=== PATIENT | female | born 1960 | race African-American/Black ===

== ENCOUNTER 2020-01-13 05:42 | Day surgery (SDC) | payer OTHER, SELFPAY ==
[~2020-01-13] VITALS: Ht 162.6 cm; Wt 81.2 kg
[2020-01-13] MEDS ORDERED: fentaNYL citrate 0.05 MG/ML VIAL ONE (07:14)
[2020-01-13] MEDS ORDERED: MIDAZOLAM 5 MG/5 ML VIAL ONE (07:14)
[2020-01-13] MEDS ORDERED: LIDOCAINE 2% 100 MG/5 ML UJET TP ONE (07:14)
[2020-01-13] MEDS ORDERED: fentaNYL citrate 0.05 MG/ML VIAL IVP ONE (08:15)
[2020-01-13] MEDS ORDERED: MIDAZOLAM 2 MG/2 ML VIAL IVP ONE (08:15)
[2020-01-13] MEDS ORDERED: SIMETHICONE 40 MG/0.6 ML PO ONE (13:40)
[2020-01-13] MEDS ORDERED: ACETAMINOPHEN 650 MG/20.3 ML UDC PO SCH (13:45)
== END 2020-01-13 08:00 | disposition home or self-care (01) ==
LOC: MDS 05:42 → MFCC 05:46 → MDS 08:00
PROVIDERS: ATTEND Internal Medicine Gastroenterology
DX: Z12.11 Encounter for screening for malignant neoplasm of colon (principal); M33.90 Dermatopolymyositis, unspecified, organ involvement unspecified; Z85.00 Personal history of malignant neoplasm of unspecified digestive organ; Z79.899 Other long term (current) drug therapy; Z20.828 Contact with and (suspected) exposure to other viral communicable diseases
CPT/HCPCS: 45378; J2250; J3010; U0003

== ENCOUNTER 2020-02-10 06:06 | Day surgery (SDC) | payer OTHER, SELFPAY ==
[~2020-02-10] VITALS: Ht 162.6 cm; Wt 81.6 kg
[2020-02-10 06:59] LABS: BASOPHILS % (AUTO) 0.5 % (0.0-2.0); EOSINOPHILS # (AUTO) 0.4 K/uL (0-0.4); HEMATOCRIT 25.9 % (36-48); HEMOGLOBIN 8.2 g/dL (12.0-16.0); LYMPHOCYTES # (AUTO) 1.9 K/uL (2.5-16.5); LYMPHOCYTES % (AUTO) 26.1 % (20.5-51.1); MEAN CORPUSCULAR HEMOGLOBIN 25 pg (27-31); MEAN CORPUSCULAR HGB CONC 32 g/dL (33-37); MONOCYTES # (AUTO) 0.8 K/uL (0.8-1.0); MONOCYTES % (AUTO) 11.2 % (1.7-9.3); NEUTROPHILS # (AUTO) 4.2 K/uL (1.8-7.7); NEUTROPHILS % (AUTO) 57.2 % (42.2-75.2); PLATELET COUNT (AUTO) 417 K/uL (140-450); RED BLOOD CELL COUNT(AUTO) 3.32 MIL/uL (4.20-5.40); RED CELL DISTRIBUTION WIDTH 17.7 % (11.6-13.7); WHITE BLOOD COUNT (AUTO) 7.4 K/uL (4.8-10.8)
[2020-02-10 07:13] LABS: ALBUMIN 3.3 g/dL (3.4-5.0); ANION GAP 13.4 (8-16); CARBON DIOXIDE 24.5 mmol/L (21-32); CREATININE 0.7 mg/dL (0.6-1.3); POTASSIUM 3.9 mmol/L (3.5-5.1); TOTAL BILIRUBIN 0.5 mg/dL (0.0-1.0)
[2020-02-10] MEDS ORDERED: IPRATROPIUM 0.02% 0.5 MG/2.5 ML NEBU INH ONE (08:00)
[2020-02-10] MEDS ORDERED: ALBUTEROL 0.083% 2.5 MG/3 ML NEBU INH ONE (08:00)
[2020-02-10] MEDS ORDERED: HYDROmorphone 1 MG/ML AMP IVP PRN (08:50)
[2020-02-10] MEDS ORDERED: diphenhydrAMINE 50 MG/ML VIAL IVP PRN (08:50)
[2020-02-10] MEDS ORDERED: ONDANSETRON 4 MG/2 ML VIAL IVP PRN (08:50)
[2020-02-10] MEDS ORDERED: LACTATED RINGERS 1,000 ML IV SCH (08:50)
== END 2020-02-10 10:10 | disposition home or self-care (01) ==
LOC: MDS 06:06 → MMU 06:06 → MDS 10:10
PROVIDERS: ATTEND Internal Medicine Gastroenterology
DX: Z12.11 Encounter for screening for malignant neoplasm of colon (principal); Z85.038 Personal history of other malignant neoplasm of large intestine; D64.9 Anemia, unspecified; E66.01 Morbid (severe) obesity due to excess calories; M33.93 Dermatopolymyositis, unspecified without myopathy; Z20.828 Contact with and (suspected) exposure to other viral communicable diseases; Z90.49 Acquired absence of other specified parts of digestive tract
CPT/HCPCS: 36415; 45380; 71045; 80053; 85025; 88305; 88313; 88342; 94640; J7120; J7613; J7644; Q0092; U0003

== ENCOUNTER 2020-04-11 06:58 | Day surgery (SDC) | payer OTHER, SELFPAY ==
[~2020-04-11] VITALS: Ht 162.6 cm; Wt 75.3 kg
[~2020-04-11 06:58] MED LIST: ACET325C8 PO; BEN10 PO; CEL250 PO; LOPE1TAB14 PO; ONDA4TAB PO
[2020-04-11 08:56] LABS: BASOPHILS % (AUTO) 0.7 % (0.0-2.0); EOSINOPHILS # (AUTO) 0.3 K/uL (0-0.4); EOSINOPHILS % (AUTO) 4.2 % (0.0-4.0); HEMATOCRIT 28.2 % (36-48); HEMOGLOBIN 8.9 g/dL (12.0-16.0); LYMPHOCYTES # (AUTO) 1.6 K/uL (2.5-16.5); LYMPHOCYTES % (AUTO) 22.6 % (20.5-51.1); MEAN CORPUSCULAR HEMOGLOBIN 24 pg (27-31); MEAN CORPUSCULAR HGB CONC 31 g/dL (33-37); MEAN CORPUSCULAR VOLUME 77.5 fL (80-94); MONOCYTES # (AUTO) 0.7 K/uL (0.8-1.0); MONOCYTES % (AUTO) 10.2 % (1.7-9.3); NEUTROPHILS # (AUTO) 4.4 K/uL (1.8-7.7); NEUTROPHILS % (AUTO) 62.3 % (42.2-75.2); PLATELET COUNT (AUTO) 370 K/uL (140-450); RED BLOOD CELL COUNT(AUTO) 3.64 MIL/uL (4.20-5.40); RED CELL DISTRIBUTION WIDTH 18.9 % (11.6-13.7)
[2020-04-11 09:04] LABS: ALBUMIN 3.4 g/dL (3.4-5.0); ANION GAP 10.9 (8-16); CARBON DIOXIDE 26.9 mmol/L (21-32); CREATININE 0.7 mg/dL (0.6-1.3); POTASSIUM 3.8 mmol/L (3.5-5.1); TOTAL BILIRUBIN 0.4 mg/dL (0.0-1.0)
[2020-04-11] MEDS ORDERED: LIDOCAINE 1% 500 MG/50 ML VIAL ONE (09:24)
[2020-04-11] MEDS ORDERED: ONDANSETRON 4 MG/2 ML VIAL IVP PRN (09:25)
[2020-04-11] MEDS ORDERED: ceFAZolin 1,000 MG VIAL ONE (09:25)
[2020-04-11] MEDS ORDERED: HYDROmorphone 1 MG/ML AMP IVP PRN (09:25)
[2020-04-11] MEDS ORDERED: NACL 0.9% 1,000 ML IV SCH (09:25)
[2020-04-11] MEDS ORDERED: fentaNYL citrate 0.05 MG/ML VIAL ONE (09:26)
[2020-04-11] MEDS ORDERED: MIDAZOLAM 2 MG/2 ML VIAL ONE (09:26)
[2020-04-11] MEDS ORDERED: BUPIVACAINE-MPF 0.25% 30 ML VIAL INJ ONE (09:27)
== END 2020-04-11 12:55 | disposition home or self-care (01) ==
LOC: MDS 06:58 → MFCC 06:59 → MDS 12:55
PROVIDERS: ATTEND Surgery
DX: C18.4 Malignant neoplasm of transverse colon (principal); M33.93 Dermatopolymyositis, unspecified without myopathy; Z90.710 Acquired absence of both cervix and uterus; Z90.49 Acquired absence of other specified parts of digestive tract; Z20.828 Contact with and (suspected) exposure to other viral communicable diseases
CPT/HCPCS: 36415; 36561; 71045; 76937; 77001; 77003; 80053; 84702; 85025; C1788; J0690; J1644; J2001; J2250; J3010; J3490; J7060; U0003

== ENCOUNTER 2022-05-08 07:31 | Day surgery (SDC) | payer OTHER ==
[~2022-05-08] VITALS: Ht 162.6 cm; Wt 82.6 kg
[2022-05-08] MEDS ORDERED: MIDAZOLAM 5 MG/5 ML VIAL ONE (09:18)
[2022-05-08] MEDS ORDERED: LIDOCAINE 2% 100 MG/5 ML UJET TP ONE (09:18)
[2022-05-08] MEDS ORDERED: fentaNYL citrate 0.05 MG/ML VIAL ONE (09:18)
[2022-05-08] MEDS ORDERED: MIDAZOLAM 5 MG/5 ML VIAL IV ONE (10:05)
[2022-05-08] MEDS ORDERED: fentaNYL citrate 0.05 MG/ML VIAL IVP ONE (10:05)
== END 2022-05-08 11:20 | disposition home or self-care (01) ==
LOC: MOR 07:31 → MMU 07:35 → MOR 11:20
PROVIDERS: ATTEND Surgery
DX: Z12.11 Encounter for screening for malignant neoplasm of colon (principal); C18.3 Malignant neoplasm of hepatic flexure; C18.4 Malignant neoplasm of transverse colon; Z20.822 Contact with and (suspected) exposure to COVID-19
CPT/HCPCS: 45378; 87426; J2250; J3010

== ENCOUNTER 2023-06-28 11:10 | Day surgery (SDC) | payer OTHER ==
[~2023-06-28] VITALS: Ht 162.6 cm; Wt 85.3 kg
[2023-06-28] MEDS ORDERED: MIDAZOLAM 5 MG/5 ML VIAL ONE (12:31)
[2023-06-28] MEDS ORDERED: fentaNYL citrate 0.05 MG/ML VIAL ONE (12:32)
[2023-06-28] MEDS ORDERED: PROPOFOL 200 MG/20 ML VIAL IV ONE (12:32)
[2023-06-28] MEDS: BUPIVACAINE-MPF 0.25% 30 ML VIAL INJ ONE (13:22)
[2023-06-28] MEDS: LIDOCAINE/EPI 1% 1:100000 20 ML VIAL INJ ONE (13:22)
[2023-06-28] MEDS ORDERED: ceFAZolin 1,000 MG VIAL ONE (13:34)
[2023-06-28] MEDS ORDERED: LIDOCAINE 2% 100 MG/5 ML SYR IVP ONE (13:34)
[2023-06-28] MEDS ORDERED: ONDANSETRON 4 MG/2 ML VIAL IVP PRN (13:40)
[2023-06-28] MEDS ORDERED: HYDROmorphone 1 MG/ML AMP IVP PRN (13:40)
[2023-06-28] MEDS ORDERED: MEPERIDINE 25 MG/ML SYR IVP PRN (13:40)
[2023-06-28] MEDS: ceFAZolin 1,000 MG VIAL ONE (13:54)
== END 2023-06-28 16:05 | disposition home or self-care (01) ==
LOC: MOR 11:10 → MMU 11:44 → MOR 16:05
PROVIDERS: ATTEND Surgery
DX: Z45.2 Encounter for adjustment and management of vascular access device (principal); Z85.038 Personal history of other malignant neoplasm of large intestine
CPT/HCPCS: 36590; 71045; 93005; J0690; J2001; J2250; J2704; J3010; J3490

== ENCOUNTER 2024-02-12 06:53 | Day surgery (SDC) | payer OTHER ==
[~2024-02-12] VITALS: Ht 162.6 cm; Wt 86.2 kg
[2024-02-12] MEDS ORDERED: fentaNYL citrate 0.05 MG/ML VIAL ONE ×2 (07:47→08:26)
[2024-02-12] MEDS ORDERED: diphenhydrAMINE 50 MG/ML VIAL ONE (07:47)
[2024-02-12] MEDS ORDERED: MIDAZOLAM 5 MG/5 ML VIAL ONE (07:48)
[2024-02-12] MEDS: MIDAZOLAM 2 MG/2 ML VIAL IVP ONE (08:11)
[2024-02-12] MEDS: fentaNYL citrate 0.05 MG/ML VIAL IVP ONE (08:12)
[2024-02-12] MEDS: LIDOCAINE 2% 100 MG/5 ML UJET TP ONE (08:16)
[2024-02-12] MEDS: diphenhydrAMINE 50 MG/ML VIAL IVP ONE (08:22)
== END 2024-02-12 11:40 | disposition home or self-care (01) ==
LOC: MDS 06:53 → MMU 06:53 → MDS 11:40
PROVIDERS: ATTEND Surgery
DX: Z08 Encounter for follow-up examination after completed treatment for malignant neoplasm (principal); K63.5 Polyp of colon; Z85.038 Personal history of other malignant neoplasm of large intestine; Z80.0 Family history of malignant neoplasm of digestive organs; Z79.899 Other long term (current) drug therapy; Z98.890 Other specified postprocedural states
CPT/HCPCS: 45380; 45385; J1200; J2250; J3010